=== PATIENT | female | born 1975 | race Hispanic/Latino ===

== ENCOUNTER 2017-04-16 20:43 | Emergency (ER) | payer BC ==
[~2017-04-16] VITALS: Ht 172.7 cm; Wt 61.2 kg
[~2017-04-16 20:43] MED LIST: ADDERALL 20 MG20 MG PO; BENTYL10 MG PO; CARAFATE1 GM PO; Hydrochlorothiazide PO; LOPRESSOR25 MG PO; PRINIVIL10 MG PO; PROTONIX40 MG/ML PO; REGLAN10 MG PO
[2017-04-16 21:37] LABS: BASOPHILS % 0.3 % (0.0-1.0); HEMOGLOBIN 14.9 g/dL (12.0-16.0); LYMPHOCYTES # (AUTO) 1.8 (1.0-3.2); LYMPHOCYTES % 16.8 % (18.0-39.1); MEAN CORPUSCULAR HEMOGLOBIN 26.7 pg (28-32); MEAN CORPUSCULAR HGB CONC 32.4 g/dL (31-35); MEAN CORPUSCULAR VOLUME 82.4 fL (81-99); MONOCYTES # (AUTO) 0.3 (0.2-0.8); MONOCYTES % 2.7 % (4.4-11.3); NEUTROPHILS # (AUTO) 8.4 (2.1-6.9); NEUTROPHILS % 79.8 % (38.7-80.0); PLATELET COUNT 257 x10e3/uL (140-360); RED BLOOD COUNT 5.58 x10e6/uL (3.6-5.1); RED CELL DISTRIBUTION WIDTH 14.1 % (11.7-14.4)
[2017-04-16 21:38] LABS: BILIRUBIN,URINE NEGATIVE (NEGATIVE); KETONES,URINE TRACE (NEGATIVE); LEUKOCYTE ESTERASE ,URINE NEGATIVE (NEGATIVE); NITRITE,URINE NEGATIVE (NEGATIVE); PROTEIN,URINE DIPSTICK NEGATIVE (NEGATIVE); URINE UROBILINOGEN 0.2 mg/dL (0.2 - 1)
[2017-04-16 21:42] LABS: CLARITY,URINE CLEAR (CLEAR); COLOR,URINE YELLOW (YELLOW)
[2017-04-16 21:47] LABS: AMPHETAMINES SCREEN,URINE POSITIVE (NEGATIVE); BENZODIAZEPINES SCREEN,URINE NEGATIVE (NEGATIVE); PHENCYCLIDINE SCREEN,URINE NEGATIVE (NEGATIVE)
[2017-04-16 21:56] LABS: WBC,URINE (MAN) 0-5 /HPF (0-5)
[2017-04-16 21:59] LABS: EPITHELIAL CELLS,URINE FEW /LPF; MUCUS,URINE FEW (RARE)
[2017-04-16 22:22] LABS: ALANINE AMINOTRANSFERASE 13 IU/L (0-55); ALBUMIN 4.6 g/dL (3.5-5.0); ALBUMIN/GLOBULIN RATIO 1.1 (0.8-2.0); ALKALINE PHOSPHATASE 93 IU/L (40-150); AMYLASE 70 U/L (25-125); ANION GAP 12.3 mmol/L (8-16); BLOOD UREA NITROGEN 10 mg/dL (7-26); BUN/CREATININE RATIO 13 (6-25); CALCIUM 9.8 mg/dL (8.4-10.2); CARBON DIOXIDE 25 mmol/L (22-29); CHLORIDE 98 mmol/L (98-107); CREATININE, SERUM 0.78 mg/dL (0.57-1.11); EST GLOMERULAR FILTRATION RATE > 60 ML/MIN (60-); GLUCOSE 104 mg/dL (74-118); LIPASE 10 U/L (8-78); POTASSIUM 4.3 mmol/L (3.5-5.1); SODIUM 131 mmol/L (136-145)
[2017-04-16 22:28] LABS: TROPONIN I 0.017 ng/mL (0-0.300)
[2017-04-16] MEDS ORDERED: PANTOPRAZOLE 40 MG 10ML VIAL IV STA (22:33)
[2017-04-16] MEDS ORDERED: ONDANSETRON HCL INJ 2 MG/ML VIAL IV STA (22:33)
[2017-04-16] MEDS ORDERED: SODIUM CHLORIDE 0.9% 1000ML 1,000 ML IV STA (22:33)
[2017-04-16 22:36] LABS: PREGNANCY TEST, URINE NEGATIVE (NEGATIVE)
[2017-04-16] MEDS ORDERED: ONDANSETRON HCL INJ 2 MG/ML VIAL ONE (22:39)
[2017-04-16 22:42] LABS: CREATINE KINASE 32 IU/L (29-168)
== END 2017-04-17 03:02 | disposition home or self-care (01) ==
LOC: ER 20:43
DX: R10.13 Epigastric pain (principal); R11.2 Nausea with vomiting, unspecified; K86.9 Disease of pancreas, unspecified
CPT/HCPCS: 36415; 80053; 80307; 81001; 81025; 82150; 82550; 82553; 83690; 84484; 85025; 99283; J2405; J7030

== ENCOUNTER 2017-10-14 15:54 | Emergency (ER) | payer BC ==
[~2017-10-14] VITALS: Ht 172.7 cm; Wt 66.7 kg
[2017-10-14] MEDS ORDERED: IBUPROFEN 200 MG TAB PO PRN (18:45)
[2017-10-14] MEDS ORDERED: IBUPROFEN 400 MG TAB PO PRN (18:45)
[2017-10-14] MEDS ORDERED: ACETAMINOPHEN 325 MG TAB PO PRN (18:45)
[2017-10-14] MEDS ORDERED: LORAZEPAM INJ 2 MG/ML VIAL IM ONE (18:45)
[2017-10-14] MEDS ORDERED: DIPHENHYDRAMINE HCL 25 MG CAP PO PRN (18:45)
[2017-10-14] MEDS ORDERED: ONDANSETRON HCL 4 MG ORAL DISINTEGRATING TAB PO ONE (18:45)
[2017-10-14] MEDS ORDERED: CLONIDINE HCL 0.2 MG TAB PO PRN (18:45)
[2017-10-14] MEDS ORDERED: ONDANSETRON HCL INJ 2 MG/ML VIAL IV STA (20:05)
[2017-10-14] MEDS ORDERED: METHADONE HCL 10 MG TAB ONE (20:12)
[2017-10-14 20:21] LABS: BASOPHILS % 0.3 % (0.0-1.0); HEMATOCRIT 37.2 % (34.2-44.1); HEMOGLOBIN 12.7 g/dL (12.0-16.0); LYMPHOCYTES # (AUTO) 2.1 (1.0-3.2); LYMPHOCYTES % 24.2 % (18.0-39.1); MEAN CORPUSCULAR HEMOGLOBIN 27.5 pg (28-32); MEAN CORPUSCULAR HGB CONC 34.1 g/dL (31-35); MEAN CORPUSCULAR VOLUME 80.7 fL (81-99); MONOCYTES # (AUTO) 0.3 (0.2-0.8); MONOCYTES % 3.5 % (4.4-11.3); NEUTROPHILS # (AUTO) 6.3 (2.1-6.9); NEUTROPHILS % 71.5 % (38.7-80.0); PLATELET COUNT 276 x10e3/uL (140-360); RED BLOOD COUNT 4.61 x10e6/uL (3.6-5.1)
[2017-10-14 20:56] LABS: ALANINE AMINOTRANSFERASE 7 IU/L (0-55); ALBUMIN 3.9 g/dL (3.5-5.0); ALBUMIN/GLOBULIN RATIO 1.2 (0.8-2.0); ALKALINE PHOSPHATASE 68 IU/L (40-150); ANION GAP 12.2 mmol/L (8-16); BLOOD UREA NITROGEN 5 mg/dL (7-26); BUN/CREATININE RATIO 6 (6-25); CALCIUM 9.2 mg/dL (8.4-10.2); CARBON DIOXIDE 25 mmol/L (22-29); CHLORIDE 107 mmol/L (98-107); CREATININE, SERUM 0.77 mg/dL (0.57-1.11); EST GLOMERULAR FILTRATION RATE > 60 ML/MIN (60-); GLUCOSE 181 mg/dL (74-118); POTASSIUM 3.2 mmol/L (3.5-5.1); SODIUM 141 mmol/L (136-145)
[2017-10-14 21:01] LABS: ACETAMINOPHEN < 3 ug/mL (10-30); SALICYLATE < 5.0 mg/dL (0-30)
[2017-10-14 21:04] LABS: CREATINE KINASE MB 0.7 ng/mL (0-5.0)
[2017-10-14] MEDS ORDERED: POTASSIUM CHLORIDE 20 MEQ TAB CR PO STA (21:16)
[2017-10-15] MEDS ORDERED: LORAZEPAM 1 MG TAB ONE (01:53)
[2017-10-15] MEDS ORDERED: LORAZEPAM 1 MG TAB PO ONE (02:00)
[2017-10-15] MEDS ORDERED: METHADONE HCL 10 MG TAB PO SCH (09:00)
== END 2017-10-15 07:35 ==
LOC: FSED 15:54 → ER 10-15 07:35
DX: R45.851 Suicidal ideations (principal); F32.9 Major depressive disorder, single episode, unspecified; F31.9 Bipolar disorder, unspecified; F41.1 Generalized anxiety disorder; F90.9 Attention-deficit hyperactivity disorder, unspecified type
CPT/HCPCS: 36415; 80053; 80307; 80320; 80329 ×2; 81003; 82550; 82553; 84484; 85025; 93005; 99285; J2060; J2405

== ENCOUNTER 2017-11-25 15:26 | Emergency (ER) | payer BC ==
[~2017-11-25] VITALS: Ht 172.7 cm; Wt 71.5 kg
[2017-11-25] MEDS ORDERED: ABILIFY5 MG PO (16:26)
[2017-11-25] MEDS ORDERED: ONDANSETRON HCL INJ 2 MG/ML VIAL IV STA (16:46)
[2017-11-25] MEDS ORDERED: SODIUM CHLORIDE 0.9% 1000ML 1,000 ML IV SCH (17:00)
[2017-11-25] MEDS ORDERED: KETOROLAC TROMETHAMINE 30 MG/ML VIAL IV STA (17:24)
[2017-11-25] MEDS ORDERED: FAMOTIDINE 20 MG/2 ML VIAL IV STA (17:24)
[2017-11-25] MEDS ORDERED: METOCLOPRAMIDE HCL 10 MG/2ML VIAL IV ONE (17:30)
--- NOTE | 2017-11-25 18:37 | Diagnostic Imaging Report ---
EXAMINATION: CT of the abdomen and pelvis with contrast. TECHNIQUE: Spiral CT images of the abdomen and pelvis were performed from the lung bases to the lesser trochanters after the intravenous administration of 100 cc of Isovue 300 and the oral administration of 1. Coronal and sagittal reformatted images were obtained. COMPARISON: CT abdomen and pelvis without contrast 12/22/2015 CLINICAL HISTORY:Right upper quadrant pain, history of pancreatitis, abdominal pain for 3 days DISCUSSION: ABDOMEN/PELVIS: LOWER THORAX:Unremarkable. HEPATOBILIARY: 4-5 mm hypodense lesion in hepatic segment II which is too small to characterize but likely represents a small cyst (series 2, image 15). No other focal lesions. No intra or extrahepatic biliary ductal dilation. GALLBLADDER: Cholecystectomy clips. SPLEEN: No splenomegaly. PANCREAS: No focal masses or ductal dilatation. No peripancreatic fat stranding/inflammatory changes, free fluid or fluid collections. ADRENALS: No adrenal nodules. KIDNEYS/URETERS: No hydronephrosis, stones, or solid mass lesions. PELVIC ORGANS/BLADDER: Bladder is unremarkable. Uterus is unremarkable. No adnexal masses. Corpus luteum cyst in the right ovary PERITONEUM/RETROPERITONEUM: Trace free fluid in the pelvic cul-de-sac. No ascites LYMPH NODES: No intra-abdominal, retroperitoneal, pelvic or inguinal lymphadenopathy. VESSELS: The celiac trunk,superior and inferior mesenteric and bilateral renal arteries are patent The portal, superior mesenteric and splenic veins are patent. GI TRACT: No bowel dilation or evidence of obstruction. No pericolonic inflammatory changes. Stomach is unremarkable. BONES AND SOFT TISSUE: No aggressive lytic lesions. Soft tissues are unremarkable. No soft tissue abnormalities. IMPRESSION: 1. No acute abdominopelvic abnormalities. Specifically, no acute abnormalities in the right upper quadrant or peripancreatic region to explain the patient's pain. Signed by: Dr. Chris Zapata M.D. on 11/25/2017 6:33 PM
== END 2017-11-25 19:21 | disposition home or self-care (01) ==
LOC: FSED 15:26
DX: R10.13 Epigastric pain (principal); R11.2 Nausea with vomiting, unspecified; K29.00 Acute gastritis without bleeding; T88.7XXA Unspecified adverse effect of drug or medicament, initial encounter; F31.9 Bipolar disorder, unspecified
CPT/HCPCS: 36415; 74177; 80048; 80076; 81003; 81025; 83690; 85025; 96374; 96375; 99284; J1885; J2405; J2765